=== PATIENT | female | born 1995 | race Caucasian/White ===

== ENCOUNTER 2017-01-28 16:40 | Emergency (ER) | payer OTHER ==
[~2017-01-28] VITALS: Ht 165.1 cm; Wt 57.0 kg
[2017-01-28 16:56] VITALS: TEMP 36.5; O2SAT 98; Ht 165.1 cm; Wt 57.0 kg
--- NOTE | 2017-01-28 17:01 | EMERGENCY ROOM VISIT NOTE ---
History Report prepared by Brandyibraheel: Myra Moseley Under the Supervision of: Dr. Pierce Shetty M.D. First contact with patient: 16:42 Chief Complaint: ALCOHOL OVERDOSE Stated Complaint: ETOH History of Present Illness The patient is a 21 year old female who presents to the Emergency Room with complaints of an episode of alcohol intoxication occurring just prior to arrival. Per EMS, the patient was falling into the street on [address]. They state that she was brought to the ED for her own safety. Source of History: patient History Limited By: intoxication Onset: prior to arrival Position: other (global) Quality: other (global) Timing: other (episode) Review of Systems See HPI for pertinent positives & negatives. A total of 10 systems reviewed and were otherwise negative. Past Medical & Surgical Medical Problems: (1) History of pneumonia Family History No pertinent family history Social History Marital Status: single Housing Status: lives with roommate Occupation Status: [employer] student Current/Historical Medications Scheduled Control Pills ( Control Pills), 1 TAB PO DAILY Doxycycline Monohydrate (Monodox), 100 MG PO BID Allergies Coded Allergies: No Known Allergies (Unverified , 01/28/17) Physical Exam Vital Signs Date Time Temp Pulse Resp B/P (MAP) Pulse Ox O2 Delivery O2 Flow Rate FiO2 01/29/17 02:52 75 18 99/56 96 01/29/17 01:51 74 18 94 01/29/17 01:46 101/59 01/29/17 01:31 100/53 01/29/17 01:21 84 22 95 01/29/17 01:16 91/55 01/29/17 01:07 87 01/29/17 01:01 99/55 01/29/17 00:51 82 21 95 01/29/17 00:46 92/44 01/29/17 00:31 92/55 01/29/17 00:21 93 24 94 01/29/17 00:16 98/54 01/29/17 00:01 95/48 01/28/17 23:51 92 23 94 01/28/17 23:46 91/45 01/28/17 23:40 94 24 94 01/28/17 23:31 92/48 01/28/17 23:25 90 22 94 01/28/17 23:20 90 25 94 01/28/17 23:16 88/43 01/28/17 23:05 87 21 94 01/28/17 23:01 103/65 01/28/17 22:50 87 24 94 01/28/17 22:45 88 18 108/60 94 Room Air 01/28/17 22:31 85 16 107/62 94 Room Air 01/28/17 22:16 87 16 106/64 95 Room Air 01/28/17 22:01 79 18 103/64 95 Room Air 01/28/17 21:46 83 18 104/65 95 Room Air 01/28/17 21:31 79 20 90/70 95 Room Air 01/28/17 21:16 94 20 109/63 95 Room Air 01/28/17 21:15 78 01/28/17 21:01 83 18 107/62 95 Room Air 01/28/17 20:46 82 17 110/62 94 Room Air 01/28/17 20:31 81 18 107/68 94 01/28/17 20:16 105/60 01/28/17 20:15 80 18 105/60 95 Room Air 01/28/17 20:00 89 18 110/62 95 Room Air 01/28/17 19:45 83 16 111/60 94 Room Air 01/28/17 19:30 89 18 106/60 94 Room Air 01/28/17 19:15 86 18 103/55 93 Room Air 01/28/17 19:00 85 16 96/49 92 Room Air 01/28/17 18:45 83 16 92/47 92 Room Air 01/28/17 18:30 85 16 91/47 91 Room Air 01/28/17 18:15 91 16 92/47 91 Room Air 01/28/17 18:00 80 15 94/49 93 Room Air 01/28/17 17:40 96 22 98 17 17:34 108/65 17 17:25 79 24 99 1517 17:16 96 17 17:10 110 34 98 1517 16:59 118/108 01/28/17 16:56 36.5 101 20 125/82 95 Room Air 01/28/17 16:56 98 Room Air 01/28/17 16:56 98 Room Air Physical Exam Vital signs reviewed. General: Odor of EtOH in the breath, disheveled 21-year-old female. No signs of trauma. HEENT: Mild scleral injection bilaterally, PERRLA, neck supple, dry mucous membranes. Cardiovascular: Regular rate and rhythm, no extra sounds. Pulmonary: Clear to auscultation bilaterally, normal work of breathing. Abdomen: Soft, nontender, nondistended, positive bowel sounds. Musculoskeletal: Upper and lower extremities atraumatic, no peripheral edema Skin: Warm, dry, no rash. Atraumatic. Neurologic: Patient is currently nonverbal. Medical Decision & Procedures ER Provider Diagnostic Interpretation: Radiology results as stated below per my review and radiologist interpretation: CHEST ONE VIEW PORTABLE CLINICAL HISTORY: Pt c/o "pneumonia" dyspnea COMPARISON STUDY: No previous studies for comparison. FINDINGS: Parenchymal infiltrate right base. Small parenchymal infiltrate left base. Upper lungs are clear. IMPRESSION: Right to lesser extent left basilar infiltrates The above report was generated using voice recognition software. It may contain grammatical, syntax or spelling errors. Electronically signed by: Alonso Wiggins M.D. 01/28/2017 6:28 PM Dictated Date/Time: 01/28/2017 6:28 PM Laboratory Results 01/28/17 18:13 Red Blood Count 3.93, Mean Corpuscular Volume 88.5, Mean Corpuscular Hemoglobin 29.0, Mean Corpuscular Hemoglobin Concent 32.8, Mean Platelet Volume 9.6, Neutrophils (%) (Auto) 64.9, Lymphocytes (%) (Auto) 30.6, Monocytes (%) (Auto) 2.0, Eosinophils (%) (Auto) 1.7, Basophils (%) (Auto) 0.4, Neutrophils # (Auto) 4.83, Lymphocytes # (Auto) 2.28, Monocytes # (Auto) 0.15, Eosinophils # (Auto) 0.13, Basophils # (Auto) 0.03 01/28/17 17:15 Test 01/28/17 17:15 01/28/17 18:13 Anion Gap 10.0 mmol/L (3-11) Est Creatinine Clear Calc Drug Dose 92.8 ml/min Estimated GFR () 111.1 Estimated GFR (Non- 95.9 BUN/Creatinine Ratio 12.2 (10-20) Calcium Level 8.7 mg/dl (8.5-10.1) Human Chorionic Gonadotropin, Qual NEG (NEG) Ethyl Alcohol mg/dL 304.0 mg/dl (0-3) White Blood Count 7.45 K/uL (4.8-10.8) Red Blood Count 3.93 M/uL (4.2-5.4) Hemoglobin 11.4 g/dL (12.0-16.0) Hematocrit 34.8 % (37-47) Mean Corpuscular Volume 88.5 fL (80-100) Mean Corpuscular Hemoglobin 29.0 pg (25-34) Mean Corpuscular Hemoglobin Concent 32.8 g/dl (32-36) Platelet Count 254 K/uL (130-400) Mean Platelet Volume 9.6 fL (7.4-10.4) Neutrophils (%) (Auto) 64.9 % Lymphocytes (%) (Auto) 30.6 % Monocytes (%) (Auto) 2.0 % Eosinophils (%) (Auto) 1.7 % Basophils (%) (Auto) 0.4 % Neutrophils # (Auto) 4.83 K/uL (1.4-6.5) Lymphocytes # (Auto) 2.28 K/uL (1.2-3.4) Monocytes # (Auto) 0.15 K/uL (0.11-0.59) Eosinophils # (Auto) 0.13 K/uL (0-0.5) Basophils # (Auto) 0.03 K/uL (0-0.2) RDW Standard Deviation 43.1 fL (36.4-46.3) RDW Coefficient of Variation 13.3 % (11.5-14.5) Immature Granulocyte % (Auto) 0.4 % Immature Granulocyte # (Auto) 0.03 K/uL (0.00-0.02) Labs reviewed by ED physician. Medications Administered Medications (Trade) Dose Ordered Sig/Capri Route Start Time Stop Time Status Last Admin Dose Admin Lorazepam (Ativan Inj) 2 mg NOW STAT IM 01/28/17 17:18 01/28/17 17:20 DC 01/28/17 17:26 2 MG Haloperidol Lactate (Haldol Inj) 10 mg NOW STAT IM 01/28/17 17:18 01/28/17 17:20 DC 01/28/17 17:26 10 MG Benztropine Mesylate (Cogentin Inj) 2 mg NOW STAT IM 01/28/17 17:18 01/28/17 17:20 DC 01/28/17 17:26 2 MG ED Course 1642: Past medical records reviewed. The patient was evaluated in room A12A. A complete history and physical examination was performed. 1717: Ordered Cogentin Inj 2 mg IM, Haldol Inj 10 mg IM, Ativan Inj 2 mg IM. 1803: The piano case maker discussed the patient's case with her parents. Her mother wants to know if her behavior is related to the recent diagnosis of pneumonia and the use of Azithromycin to treat it. Although I believe her behavior is due to her use of alcohol, I will order a Chest X-Ray. Medical Decision Medication Reconciliation: I attest that I have personally reviewed the patient' s current medication list Blood Pressure Screening: Patient was found to have normal blood pressure on screening and does not require follow up. Differential diagnosis: Etiologies such as alcohol intoxication, toxicologic, infection, hypoglycemia, electrolyte abnormalities, cardiac sources, intracerebral event, neurologic, as well as others were entertained. This is a 21-year-old female who presents to the emergency department after she was found stumbling in the street by police. She was sent to the emergency department for her own safety however upon arrival to the emergency department the patient is belligerent and cursing. She tried to run out of the emergency department multiple times and had to be stopped by security. I tried to calm the patient multiple times using verbal reasoning however the patient continued to be belligerent and again tried to escape. At this point the patient was sedated for her own safety. She was given 10 of Haldol, 2 of Ativan and 2 of Cogentin. The patient was then placed on the cardiac cath tech in the prone position. Aspiration precautions were taken. The alcohol level was obtained. At this point the patient's mother called into the emergency department over concerns that her daughter had been taken there. She is concerned that the patient may have had a reaction to her azithromycin which she is on for pneumonia. I will note that the patient's alcohol level was in excess of 300. Because the patient does have a pneumonia she was sent for a chest x-ray and a CBC was obtained. I will note that the patient's white blood cell count is not high however she does appear to have diffuse pneumonia on chest x-ray. For this reason I will place the patient on doxycycline. She can begin this when she wakes up. Impression Primary Impression: Pneumonia Additional Impression: Alcoholic intoxication Scribe Attestation The scribe's documentation has been prepared under my direction and personally reviewed by me in its entirety. I confirm that the note above accurately reflects all work, treatment, procedures, and medical decision making performed by me. Departure Information Dispostion Home / Self-Care Prescriptions Doxycycline Monohydrate (Monodox) 100 Mg Cap 100 MG PO BID for 10 Days, #20 CAP Prov: Pierce Shetty MD 01/28/17 Referrals No Doctor, Assigned (PCP) Forms HOME CARE DOCUMENTATION FORM, IMPORTANT VISIT INFORMATION Patient Instructions My [facility] Additional Instructions JERRY= .300 @ 1700 Sober @ 0400 Follow up with PCP for resolution of Pneumonia You received Haldol medication while in the emergency room today. Do not drive , operate heavy machinery, or drink alcohol under the influence of this medication. Take Benadryl 50 mg to avoid a dystonic reaction You have been examined and treated today on an emergency basis only. This is not a substitute for, or an effort to provide, complete comprehensive medical care. It is impossible to recognize and treat all injuries or illnesses in a single emergency department visit. It is therefore important that you follow up closely with [facility]. Call as soon as possible for an appointment. Thank you for your time and consideration. I look forward to speaking with you again soon. Please don't hesitate to call us if you have any questions. Problem Qualifiers Primary Impression: Pneumonia Pneumonia type: due to unspecified organism Laterality: right Lung location : lower lobe of lung Qualified Codes: J18.1 - Lobar pneumonia, unspecified organism Additional Impression: Alcoholic intoxication Complication of substance-induced condition: uncomplicated Qualified Codes: F10.920 - Alcohol use, unspecified with intoxication, uncomplicated
[2017-01-28] MEDS ORDERED: LORAZEPAM 2 MG/ML 1 ML VIAL IM STA (17:18)
[2017-01-28] MEDS ORDERED: BENZTROPINE MESYLATE 1 MG/ML 2 ML AMP IM STA (17:18)
[2017-01-28] MEDS ORDERED: HALOPERIDOL LACTATE 5 MG/ML 1 ML VIAL IM STA (17:18)
[2017-01-28] MEDS ORDERED: BCPILLS PO (17:21)
[2017-01-28 17:43] LABS: BUN/CREATININE RATIO 12.2 (10-20); CALCIUM 8.7 mg/dl (8.5-10.1); CREATININE 0.87 mg/dl (0.60-1.20); POTASSIUM 3.5 mmol/L (3.5-5.1)
[2017-01-28 17:53] LABS: PREG INTERNAL NEGATIVE QC NEG CLEAR BACKGROUND; PREG INTERNAL POSITIVE QC POS CONTROL LINE
[2017-01-28 18:20] LABS: BASO % 0.4 %; BASO ABS # 0.03 K/uL (0-0.2); COMPLETE YES; EOS % 1.7 %; HEMATOCRIT 34.8 % (37-47); IG% 0.4 %; LYMPH % 30.6 %; LYMPH ABS # 2.28 K/uL (1.2-3.4); MEAN CELL VOLUME 88.5 fL (80-100); MEAN CORPUSCULAR HGB CONC 32.8 g/dl (32-36); MEAN PLATELET VOLUME 9.6 fL (7.4-10.4); NEUT % 64.9 %; PLATELET COUNT 254 K/uL (130-400); RED BLOOD COUNT 3.93 M/uL (4.2-5.4); WHITE BLOOD COUNT 7.45 K/uL (4.8-10.8)
--- NOTE | 2017-01-28 18:30 | DIAGNOSTIC IMAGING REPORT ---
CHEST ONE VIEW PORTABLE CLINICAL HISTORY: Pt c/o "pneumonia" dyspnea COMPARISON STUDY: No previous studies for comparison. FINDINGS: Parenchymal infiltrate right base. Small parenchymal infiltrate left base. Upper lungs are clear. IMPRESSION: Right to lesser extent left basilar infiltrates The above report was generated using voice recognition software. It may contain grammatical, syntax or spelling errors. Electronically signed by: Alonso Wiggins M.D. 01/28/2017 6:28 PM Dictated Date/Time: 01/28/2017 6:28 PM
[2017-01-28] MEDS ORDERED: DOXY100C76 PO (18:49)
[2017-01-29 02:52] VITALS: BP 99/56; PULSE 75; O2SAT 96
== END 2017-01-29 02:54 | disposition home or self-care (01) ==
LOC: C.EDA 16:48
DX: F10.129 Alcohol abuse with intoxication, unspecified (principal); Y90.8 Blood alcohol level of 240 mg/100 ml or more; J18.9 Pneumonia, unspecified organism

== ENCOUNTER 2017-04-22 13:34 | Emergency (ER) | payer OTHER ==
[~2017-04-22] VITALS: Ht 165.1 cm; Wt 59.8 kg
[~2017-04-22 13:34] MED LIST: BCPILLS PO
[2017-04-22 13:41] VITALS: BP 126/82; TEMP 37.1; Ht 165.1 cm; Wt 59.8 kg
[2017-04-22] MEDS ORDERED: ACETAMINOPHEN 500 MG TAB PO STA (14:02)
--- NOTE | 2017-04-22 14:07 | EMERGENCY ROOM VISIT NOTE ---
History First contact with patient: 13:52 Chief Complaint: FACIAL PAIN/INJURY Stated Complaint: FACE BRUISING, NUMBNESS FOR FALL History of Present Illness The patient is a 21 year old female who presents to the Emergency Room with complaints of significant left-sided facial swelling after she sustained a fall last evening. The patient reports falling down approximately 9 steps. There was no loss of consciousness. She denies any significant headache. No changes in vision. No nausea. She denies any neck pain. She is concerned because she has numbness on the left cheek and left upper lip. Review of Systems 10 system review performed and negative unless noted in HPI or below Past Medical/Surgical History Medical Problems: (1) History of pneumonia Asthma Family History No pertinent family history Social History Smoking Status: Never Smoker Marital Status: single Housing Status: lives with roommate Occupation Status: [employer] student Current/Historical Medications Scheduled Amoxicillin & Pot Clavulanate (Augmentin 875-125 mg), 1 TAB PO BID Control Pills ( Control Pills), 1 TAB PO DAILY Scheduled PRN Oxycodone/Acetaminophen 5MG/325MG (Percocet 5MG/325MG), 1-2 TABS PO Q4H PRN for Pain Physical Exam Vital Signs Date Time Temp Pulse Resp B/P (MAP) Pulse Ox O2 Delivery O2 Flow Rate FiO2 04/22/17 16:29 88 18 99 04/22/17 13:41 37.1 82 18 126/82 98 Room Air Physical Exam VITALS: Vitals are noted on the nurse's note and reviewed by myself. Vital signs stable. GENERAL: 21-year-old female, in no acute distress, nondiaphoretic, well- developed well-nourished. SKIN: The skin was intact HEAD: Significant ecchymosis and edema over the left zygomatic bone into the mandible. No tenderness over the frontal bone. EARS: External auditory canals clear, tympanic membranes pearly arce without erythema or effusion bilaterally. EYES: Pupils equal round and reactive to light and accommodation. Conjunctivae without injection, sclerae without icterus. Extraocular movements intact. NOSE: Ecchymosis and swelling to the bridge of the nose. MOUTH: Mucous membranes moist. No injury to the teeth. Small, superficial, healing laceration noted to the inner upper lip NECK: Supple without nuchal rigidity. No lymphadenopathy. Cervical spine is nontender. No JVD. HEART: Regular rate and rhythm without murmurs gallops or rubs. LUNGS: Clear to auscultation bilaterally without wheezes, rales or rhonchi. No accessory muscle use. MUSCULOSKELETAL: No muscle atrophy, erythema, or edema noted. Strength 5/5 throughout. NEURO: Patient was alert and oriented to person place and time. Cerebellar function intact. Normal heel-to-toe walking. Negative Romberg. Normal sensation to touch. No focal neurological deficits. Medical Decision & Procedures ER Provider Diagnostic Interpretation: CT facial bones without IMPRESSION: 1. Acute comminuted displaced anterior and posterior left maxillary wall fractures with associated subcutaneous emphysema, deep tissue air and moderate soft tissue swelling about the left facial soft tissues. 2. Acute mildly depressed left inferior orbital wall fracture without evidence of inferior rectus muscular entrapment. 3. Mild to moderate background sinus disease. Medications Administered Medications (Trade) Dose Ordered Sig/Capri Route Start Time Stop Time Status Last Admin Dose Admin Acetaminophen (Tylenol Tab) 1,000 mg NOW STAT PO 04/22/17 14:02 04/22/17 14:03 DC 04/22/17 14:02 1,000 MG Amoxicillin/ Clavulanate Potassium (Augmentin Tab) 875 mg NOW ONCE PO 04/22/17 15:45 04/22/17 15:46 DC 04/22/17 16:29 875 MG ED Course The patient was seen and examined She was given a dose of Tylenol Imaging was performed and reviewed The case was discussed with Dr. Eldridge from [facility] facial surgery. The patient was given 1 dose of Augmentin We thoroughly discussed her results and discharge instructions. She voiced understanding, and was discharged in good condition Medical Decision Differential diagnosis: Facial contusion, facial bone fracture, concussion This patient is a 21-year-old female that presents emergency department after falling down stairs. She had significant ecchymosis and swelling to the left side of her face. She did not have any signs of a concussion or severe head injury. No headache. No nausea or vomiting. CT of the facial bones revealed multiple facial bone fractures. There was displacement of the maxillary bone fracture. This was discussed with maxillofacial surgery. She also had an inferior orbital wall fracture. Her extraocular muscles are intact. She was instructed to not blow her nose. She was put on antibiotic prophylaxis. She will follow-up with maxillofacial surgery this week. She agreed to return to the emergency department with any new or worsening symptoms. This chart was completed in part utilizing [email or web address] Speech Voice Recognition software. Attempts were made to minimize the grammatical errors, random word insertions, pronoun errors and incomplete sentences. Any formal questions or concerns about the content, text or information contained within the body of this dictation should be directly addressed to the provider for clarification. Impression Primary Impression: Multiple facial bone fractures Departure Information Dispostion Home / Self-Care Condition FAIR Prescriptions Oxycodone/Acetaminophen 5MG/325MG (PERCOCET 5MG/325MG) Tab 1-2 TABS PO Q4H Y for Pain, #15 TAB For Initial Treatment Prov: Daily Mcfadden PA-C 04/22/17 Amoxicillin & Pot Clavulanate (Augmentin 875-125 mg) 1 Tab Tab 1 TAB PO BID for 7 Days, #14 TAB Prov: Daily Mcfadden PA-C 04/22/17 Referrals No Doctor, Assigned (PCP) Benjie Eldridge D.D.S. Patient Instructions Fx Facial, [facility] Additional Instructions You were evaluated in the emergency department for facial swelling. You have multiple facial bone fractures. Please call Dr. Eldridge's office on Monday morning for a follow-up appointment. The number has been provided. Ibuprofen 600 mg every 6 hours Percocet 1-2 tabs every 4 hours for severe pain. Do not drink alcohol or drive while taking this medication. This may be taken with ibuprofen, but avoid Tylenol. This medication may cause constipation. Take a stool softener such as Colace 100 mg twice daily. It is very important to finish the entire course of antibiotics. DO NOT BLOW YOUR NOSE Please return to the emergency department with any new or worsening symptoms.
--- NOTE | 2017-04-22 14:55 | DIAGNOSTIC IMAGING REPORT ---
FACIAL BONES-MXILLOFAC WITHOUT CLINICAL HISTORY: 21 years-old Female presenting with R facial swelling over cheeck/jaw. Acute left-sided facial swelling status post fall TECHNIQUE: High-resolution CT scan of the facial bones is performed. Images are reviewed in the axial, sagittal, and coronal planes. IV contrast was not administered for this examination. A dose lowering technique was utilized adhering to the principles of ALARA. CT DOSE: 529.94 mGy.cm FINDINGS: Acute comminuted maxillary wall fractures are present. There is 7 mm posterior depression of a comminuted anterior left maxillary wall fracture and 6 mm depression of a posterior left maxillary wall fracture as seen on image 214 of series 3 hemorrhagic filled left maxillary sinus is noted with deep tissue air and subcutaneous emphysema tracking along the left cheek. Moderate left jaw, left cheek and left periorbital soft tissue swelling. Comminuted left inferior orbital wall fracture is present with depression of 3 mm as seen on image 31 of series 300. No entrapment of the adjacent inferior rectus musculature. There is only mild stranding of the adjacent extraconal fat. No additional acute facial bone fracture identified. The mandible and imaged cervical spine appears intact. Moderate polypoid mucosal thickening of the right maxillary sinus. Mild mucosal thickening of the ethmoid air cells. There is mild leftward deviation of the nasal septum without definite fracture identified. IMPRESSION: 1. Acute comminuted displaced anterior and posterior left maxillary wall fractures with associated subcutaneous emphysema, deep tissue air and moderate soft tissue swelling about the left facial soft tissues. 2. Acute mildly depressed left inferior orbital wall fracture without evidence of inferior rectus muscular entrapment. 3. Mild to moderate background sinus disease. The above report was generated using voice recognition software. It may contain grammatical, syntax or spelling errors. Electronically signed by: Nicanor Stanley M.D. 04/22/2017 2:53 PM Dictated Date/Time: 04/22/2017 2:44 PM
[2017-04-22] MEDS ORDERED: OXYC-57 PO (15:39)
[2017-04-22] MEDS ORDERED: AMOX875T PO (15:39)
[2017-04-22] MEDS ORDERED: AMOXICILLIN/CLAVULANATE TAB 875 MG TAB PO ONE (15:45)
[2017-04-22 16:29] VITALS: PULSE 88; O2SAT 99
== END 2017-04-22 16:30 | disposition home or self-care (01) ==
LOC: C.EDB 13:35 → C.EDD 16:30
DX: S02.40DA Maxillary fracture, left side, initial encounter for closed fracture (principal); S02.82XA Fracture of other specified skull and facial bones, left side, initial encounter for closed fracture; W10.9XXA Fall (on) (from) unspecified stairs and steps, initial encounter; J45.909 Unspecified asthma, uncomplicated; Z87.01 Personal history of pneumonia (recurrent)

== ENCOUNTER 2017-05-13 03:29 | Emergency (ER) | payer OTHER ==
[~2017-05-13] VITALS: Ht 165.1 cm; Wt 50.0 kg
[~2017-05-13 03:29] MED LIST changes: +OXYC-57 PO
[2017-05-13 03:40] VITALS: TEMP 36.8; Ht 165.1 cm; Wt 50.0 kg
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
[2017-05-13 04:45] LABS: BUN/CREATININE RATIO 14.2 (10-20); CALCIUM 8.1 mg/dl (8.5-10.1); CREATININE 0.75 mg/dl (0.60-1.20); POTASSIUM 3.1 mmol/L (3.5-5.1)
[2017-05-13 05:04] LABS: PREG INTERNAL NEGATIVE QC NEG CLEAR BACKGROUND; PREG INTERNAL POSITIVE QC POS CONTROL LINE
--- NOTE | 2017-05-13 06:12 | DIAGNOSTIC IMAGING REPORT ---
HEAD WITHOUT CONTRAST (CT) CT DOSE: 1074.96 mGy.cm HISTORY: Trauma left temoral scalp injury, etoh TECHNIQUE: Multiaxial CT images of the head were performed without the use of intravenous contrast. A dose lowering technique was utilized adhering to the principles of ALARA. Comparison: None. Findings: The paranasal sinuses and mastoid air cells are clear. The calvarium and skull base are intact. The ventricles and sulci are within normal limits. There is no mass, hematoma, midline shift, or acute infarct. Impression: No acute intracranial abnormality. The above report was generated using voice recognition software. It may contain grammatical, syntax or spelling errors. Electronically signed by: Alonso Wiggins M.D. 05/13/2017 6:10 AM Dictated Date/Time: 05/13/2017 6:09 AM
[2017-05-13 09:37] VITALS: BP 92/50; PULSE 78; O2SAT 98
== END 2017-05-13 09:40 | disposition home or self-care (01) ==
LOC: EDBD 03:29 → C.ED 03:30 → C.EDA 09:40
DX: F10.10 Alcohol abuse, uncomplicated (principal); F10.920 Alcohol use, unspecified with intoxication, uncomplicated; S09.90XA Unspecified injury of head, initial encounter; S01.01XA Laceration without foreign body of scalp, initial encounter; W04.XXXA Fall while being carried or supported by other persons, initial encounter